=== PATIENT | male | born 1940 | race African-American/Black ===

== ENCOUNTER 2018-04-06 00:41 | Emergency (ER) | payer MEDICARE ==
[2018-04-06] MEDS ORDERED: Famotidine 20 MG TAB ONE ×2 (01:20→01:38)
[2018-04-06] MEDS ORDERED: diphenhydrAMINE 25 MG CAP ONE (01:20)
[2018-04-06] MEDS ORDERED: predniSONE 20 MG TAB ONE (01:38)
== END 2018-04-06 01:48 | disposition home or self-care (01) ==
LOC: SCSER 00:41
DX: L25.9 Unspecified contact dermatitis, unspecified cause (principal)
CPT/HCPCS: 99282; Q0163